=== PATIENT | male | born 1935 | race Caucasian/White ===

== ENCOUNTER 2018-03-15 17:09 | Emergency (ER) | payer SELFPAY ==
--- NOTE | 2018-03-15 18:24 | ED Elopement Review ---
ED Pt Elopement review - Results review Lab results: Laboratory Tests 03/15/18 17:18 POC Glucose 127 H Patient states that his sugar was in the 60s. After eating some today came up to 127. He admits to being a diabetic and not eating today. He is feeling better and does not want any further ED evaluation. He was provided a go back with a snack and juice. Patient declined EKG, labs, and further evaluation and will return if symptoms worsen. - Call Back decision Pt Call Back Decision: No action required (pt informed to f/u with pmd)
[2018-03-15 18:50] VITALS: BP 141/93
== END 2018-03-15 18:50 | disposition left against medical advice (07) ==
LOC: EEVIPCON 17:09 → ED 17:09
DX: R42 Dizziness and giddiness (principal); R61 Generalized hyperhidrosis; Z53.21 Procedure and treatment not carried out due to patient leaving prior to being seen by health care provider
CPT/HCPCS: 82962